=== PATIENT | male | born 1980 | race Caucasian/White ===

== ENCOUNTER 2018-06-11 00:03 | Outpatient (CLI) | payer BC, SELFPAY ==
[2018-06-11 10:59] LABS: HCT 45.6 % (40.0-50.0); HGB 15.7 g/dL (13.5-17.5); Mean Corp. HGB Concentration 34.4 g/dL (32.0-36.0); Mean Corpuscular Hemoglobin 31.8 pg (27.0-33.0); Mean Corpuscular Volume 92.3 fL (80-95); Mean Platelet Volume 10.5 fL (8.0-11.0); Platelet Count 217 x1000/uL (130-400); RBC 4.94 m/cumm (4.50-6.00); RBC Distribution Width 12.6 % (11.8-14.1); White Blood Cell Count 6.01 k/cumm (4.4-10.8)
[2018-06-11 11:31] LABS: ALT 38 U/L (12-78); AST 19 U/L (15-37); Albumin 3.9 g/dL (3.4-5.0); Alkaline Phosphatase 63 U/L (46-116); Anion Gap 9.4 mmol/L (3-11); BUN 17 mg/dL (7-18); Bilirubin, Total 0.6 mg/dL (0.2-1.0); CO2 26.6 mmol/L (21.0-32.0); CREATININE 0.95 mg/dL (0.70-1.30); Chloride 105 mmol/L (98-107); Cholesterol 170 mg/dL (50-200); Glucose 91 mg/dL (70-100); HDL Cholesterol 46 mg/dL (40-60); LDL CHOLESTEROL 106 mg/dL (<100); Potassium 4.3 mmol/L (3.5-5.1); Sodium 141 mmol/L (136-145); Total Protein 7.2 g/dL (6.4-8.2); Triglyceride 83 mg/dL (30-150)
== END 2018-06-11 00:23 ==
PROVIDERS: PCP Family Medicine; Visit Provider Family Medicine
DX: Z00.00 Encounter for general adult medical examination without abnormal findings (principal); Z13.228 Encounter for screening for other metabolic disorders; Z13.220 Encounter for screening for lipoid disorders; Z13.0 Encounter for screening for diseases of the blood and blood-forming organs and certain disorders involving the immune mechanism
CPT/HCPCS: 36415; 80053; 80061; 83721; 85027

== ENCOUNTER → 2023-04-16 13:27 | Outpatient (CLI) | payer BC, SELFPAY ==
--- NOTE | 2023-04-16 12:15 | DI.RAD_ITS ---
Exam(s) XR ARTHRITIS SERIES EXAM: XR ARTHRITIS SERIES CLINICAL HISTORY: increasing deformity,bilat hand pain, m79.642,m79.641. TECHNIQUE: 2D digital imaging was performed. Two views of both hands. COMPARISON: No exams were available for comparison FINDINGS: BONES: The bones are normally mineralized. No acute fracture is present. Chronic appearing deformit y of the tuft of the distal phalanx of the 4th finger of the left hand. No bony destructive lesion i s seen. JOINTS: No dislocation present. Minimal joint space narrowing and periarticular spurring at the inte rphalangeal joint of the left thumb. Chronic appearing adjacent densities. The there maintaining david ints of both hands and wrists are unremarkable. SOFT TISSUE: Normal. IMPRESSION: Minimal degenerative changes at the interphalangeal joints of both thumbs. DATA REPOSITORY: RADIATION DOSE DELIVERED:
== END ==
PROVIDERS: PCP Nurse Practitioner Family; Visit Provider Nurse Practitioner Family
DX: M20.092 Other deformity of left finger(s) (principal); M79.641 Pain in right hand
CPT/HCPCS: 73120

== ENCOUNTER 2023-04-28 03:00 | Outpatient (CLI) | payer BC, SELFPAY ==
[2023-04-28 07:24] LABS: HCT 43.5 % (40.0-50.0); HGB 15.4 g/dL (13.5-17.5); MCH 32.4 pg (27.0-33.0); MCHC 35.4 % (32.0-36.0); MCV 92 fL (80-95); MPV 9.1 fL (8.0-11.0); Platelet Count 208 10^3/uL (130-400); RBC 4.75 10^6/uL (4.36-5.78); RDW-SD 40.1 fL; WBC 6.18 10^3/uL (4.4-10.8)
[2023-04-28 09:07] LABS: ALT 39 U/L (16-63); AST 22 U/L (15-37); Albumin 3.7 g/dL (3.4-5.0); Alkaline Phosphatase 53 U/L (46-116); Anion Gap 7.7 mmol/L (3-11); BUN 17 mg/dL (7-18); Bilirubin, Total 0.5 mg/dL (0.2-1.0); CO2 27.3 mmol/L (21.0-32.0); Calcium 8.9 mg/dL (8.5-10.1); Calculated LDL 113 mg/dL (<100); Chloride 103 mmol/L (98-107); Cholesterol 199 mg/dL (<200); Estimated GFR 94.59 (mL/min/1.73m2); Glucose 116 mg/dL (74-106); HDL Cholesterol 53 mg/dL (40-60); Potassium 3.9 mmol/L (3.5-5.1); Sodium 138 mmol/L (136-145); Total Protein 7.2 g/dL (6.4-8.2); Triglyceride 167 mg/dL (<150); Vitamin B12 548 pg/mL (193-986)
[2023-04-28 18:58] LABS: Hepatitis C Ab w Rflx HCV PCR Negative (Negative)
[2023-04-28 18:59] LABS: HIV-1/2 Ag & Ab Screen Negative (Negative)
== END 2023-04-28 03:01 | disposition home or self-care (01) ==
LOC: LBO 03:00
PROVIDERS: PCP Nurse Practitioner Family; Visit Provider Nurse Practitioner Family
DX: Z13.220 Encounter for screening for lipoid disorders (principal); R20.2 Paresthesia of skin; Z11.4 Encounter for screening for human immunodeficiency virus [HIV]; Z11.59 Encounter for screening for other viral diseases
CPT/HCPCS: 36415; 80053; 80061; 85027; 86803; 87389; 82607

== ENCOUNTER 2023-05-19 10:23 | Day surgery (SDC) | payer BC, SELFPAY ==
[2023-05-19 10:33] VITALS: BP 151/95; PULSE 72; RESP 16; TEMP 36.1; O2SAT 97
[2023-05-19] MEDS: Lactated Ringers 1,000 ML 80 ML IV (10:40)
--- NOTE | 2023-05-19 10:50 | W.ANESPRE ---
General Info Date of Service Date Performed: 05/19/23 Height: 5 ft 6.5 in Weight: 112.9 kg Body Mass Index (BMI): 39.5 Surgical Procedure: Operation Date: 05/19/23 12:05 Proposed Procedure Side Surgeon pranay Gray MD Meds Allergies and Home Medications Allergies Allergy/AdvReac Type Severity Reaction Status Date / Time Sulfa (Sulfonamide Allergy Unknown Unverified 05/19/23 10:31 Antibiotics) Home Medication Medication Instructions Recorded vitamin B complex 1 cap PO DAILY 05/06/23 albuterol sulfate 90 mcg/actuation 2 inh inhalation Q6H PRN shortness 05/08/23 aerosol inhaler of breath or wheezing #18 grams inhalational spacing device #1 ea 05/08/23 (Aerochamber MV spacer) Current Visit Medications: Current Medications Generic Name Dose Route Start Last Admin Trade Name Freq PRN Reason Stop Dose Admin Ringer's Solution 1,000 mls @ 80 mls/hr 05/19/23 06:00 05/19/23 10:40 IV 06/17/23 23:59 80 mls/hr INFUSION KEENAN Administration IV Miscellaneous Supplies 1 each 05/19/23 06:00 Iv Access IV 06/17/23 23:59 DIRECTED KEENAN Sodium Chloride 0 ml 05/19/23 06:00 Normal Saline Flush 10 Ml Syr IV 06/17/23 23:59 PRN PRN Sodium Chloride 0 ml 05/19/23 06:00 Normal Saline 10 Ml Vial IJ 06/17/23 23:59 DIRECTED PRN Sterile Water 0 ml 05/19/23 06:00 Water,Injection,Sterile 10 Ml Vial IJ 06/17/23 23:59 DIRECTED PRN PFSH Active Problems Active Problems: Problem Status Onset Code Upper respiratory infection J06.9 Bilateral hand pain M79.641, M79.642 Paresthesias R20.2 Medical History Medical History Obesity Elevated blood pressure reading in office without diagnosis of hypertension Tobacco Smoking/Tobacco Use Status: Former Tobacco Use Passive smoking exposure: Yes Second hand exposure: Yes Alcohol Alcohol Intake: current Alcohol intake frequency: a few times a week Alcohol type: beer Substance Use Substance use: Daily Substance use type: marijuana Vital Signs and Lab Results Vital Signs Most Recent Vital Signs in EMR: Most Recent Vital Signs Temp Pulse Resp BP Pulse Ox 36.1 C L 72 16 151/95 H 97 05/19/23 10:33 05/19/23 10:33 05/19/23 10:33 05/19/23 10:33 05/19/23 10:33 Lab Results Blood Type / Crossmatch: No Data to Display Complete Blood Count: White Blood Count 6.18 10^3/uL (4.4-10.8) 04/28/23 07:10 Red Blood Count 4.75 10^6/uL (4.36-5.78) 04/28/23 07:10 Hemoglobin 15.4 g/dL (13.5-17.5) 04/28/23 07:10 Hematocrit 43.5 % (40.0-50.0) 04/28/23 07:10 Platelet Count 208 10^3/uL (130-400) 04/28/23 07:10 Complete Metabolic Panel: Sodium 138 mmol/L (136-145) 04/28/23 07:10 Potassium 3.9 mmol/L (3.5-5.1) 04/28/23 07:10 Chloride 103 mmol/L (98-107) 04/28/23 07:10 Carbon Dioxide 27.3 mmol/L (21.0-32.0) 04/28/23 07:10 BUN 17 mg/dL (7-18) 04/28/23 07:10 Creatinine 1.0 mg/dL (0.70-1.30) 04/28/23 07:10 Est GFR (CKD-EPI 2020) 94.59 (mL/min/1.73m2) 04/28/23 07:10 Calcium 8.9 mg/dL (8.5-10.1) 04/28/23 07:10 Albumin 3.7 g/dL (3.4-5.0) 04/28/23 07:10 Glucose 116 mg/dL (74-106) H 04/28/23 07:10 Liver Function Panel: Alanine Aminotransferase (ALT/SGPT) 39 U/L (16-63) 04/28/23 07:10 Aspartate Amino Transf (AST/SGOT) 22 U/L (15-37) 04/28/23 07:10 Coagulation Panel: No Data to Display Cardiac Panel: No Data to Display Arterial Blood Gas: No Data to Display Venous Blood Gas: No Data to Display Pancreas Panel: No Data to Display Thyroid Panel: No Data to Display Infectious Disease: HIV (1&2) Ag and Ab, 4th Generation Negative (Negative) 04/28/23 07:10 Hepatitis C Antibody Negative (Negative) 04/28/23 07:10 Blood Cultures: No Data to Display Toxicology Panel: No Data to Display Anesthesia Assessment and Plan Anesthesia History Personal History: No History of Anesthesia Complications Family History: No Family History of Anesthesia Complications Exercise Tolerance Exercise Tolerance: Metabolic Equivalents>4 Pertinent Negatives Pertinent Negatives: No Symptoms of GERD, No Major Cardiovascular Symptoms or Complaints, No Major Pulmonary Symptoms or Complaints and No History of CVA/TIA Cardiac & Pulmonary Exam Cardiac Exam: Normal S1/S2 Heart Sounds Pulmonary Exam: Clear Bilateral Breath Sounds Implantable Cardiac Device Does patient have a Pacemaker or an ICD?: No Airway Exam Known Difficult Airway: No Mallampati Class: 2 Mouth Opening: Normal (> 3cm) Thyromental Distance: Greater than 3 cm Neck Range of Motion: Full ROM Neck Circumference: Normal Teeth Condition: Normal Dentition ASA Classification ASA Score: ASA 2 Emergency Case?: No NPO Status NPO Status: NPO Clears >2 hours, Solids >8 hours Anesthesia Plan Resuscitation Status: Full Code Anesthesia Technique: General Anesthesia Airway Planned: Natural Airway Monitors Used: Standard Monitors
[2023-05-19 11:17] VITALS: BMI 39.5
--- NOTE | 2023-05-19 12:15 | W.COLOREPORT ---
Date of service: 05/19/23 Time of Service: 12:15 Colonoscopy Report Procedure Description: PROCEDURES PERFORMED: 1. Colonoscopy with cold forceps polypectomy PREOPERATIVE DIAGNOSIS: Screening colonoscopy POSTOPERATIVE DIAGNOSIS: Hyperplastic colorectal polyps SURGEON: Karen Gray MD INDICATION for procedure: The patient is a 43-year-old man who has never had a screening colonoscopy before. He has no symptoms. He has no family history of colon cancer. FINDINGS: The terminal ileum was normal. No diverticular disease noted. In the distal sigmoid and rectum are 4 or 5 flat, hyperplastic?appearing polyps. The largest 1 was removed with cold forceps technique to confirm benign histology. No hemorrhoid disease. SURVEILLANCE interval/FOLLOW-UP: 10 years SPECIMENS: yes EBL: Minimal COMPLICATIONS: None QUALITY of prep: Excellent Procedure in detail: The patient gave written consent and was in agreement with the indications, the potential risks as well as the benefits of the procedure. They taken to the endoscopy suite and laid in the left lateral decubitus position. A timeout was performed and anesthesia was administered which was tolerated well. I started the procedure. Digital rectal and visual examination was performed and grossly within normal limits. A well-lubricated flexible colonoscope was then introduced and passed without any notable difficulty all the way to the cecum identified by the ileocecal valve and the appendiceal orifice. The terminal ileum was briefly intubated and looked normal. The scope was then slowly withdrawn with the above-noted findings. The patient tolerated the procedure well and was taken to the PACU in hemodynamically stable condition.
--- NOTE | 2023-05-19 12:16 | W.PM.DSUDISC ---
Date of service: 05/19/23 Time of Service: 12:16 Discharge Plan Disposition Patient Disposition: Home Condition: Good Discharge Details Attending Provider: Satinder Gray Primary Care Provider: Jf Pedersen Home Meds and New Rx's Prescriptions: No Action vitamin B complex Capsule 1 cap PO DAILY albuterol sulfate 90 mcg/actuation HFA aerosol inhaler 2 inh inhalation Q6H PRN (Reason: shortness of breath or wheezing) Qty: 18 0RF (DME) Aerochamber MV Spacer See Rx Instructions .Route Qty: 1 0RF Rx Instructions: As directed Discharge Instructions Additional Instructions: FINDINGS: A small polyp was found and removed today. This is likely a completely benign polyp that has no cancer risk. It got removed and will get tested to confirm that. Because these types of polyps have no risk, you can repeat another colonoscopy in 10 years. Stand Alone Forms: Colonoscopy Post Instructions Activity:: Activity as Tolerated Diet:: As Tolerated
--- NOTE | 2023-05-19 12:33 | BOWEL_PTH ---
PATIENT: Ottoniel Craig LOC: [facility] U#:[id number] AGE/SX: 43/M ROOM: RE05/19/[address]: Satinder Gray : 1980 BED: DIS: 05/19/2023 SPEC #: [id number] RECD: 05/19/23 17:08 STATUS: EMORY CARTER #: [id number] MARLY: 05/19/23 12:[address]: Satinder Gray DEPT: Surgical Specimen RECD BY: Janice Marie ENTERED: 05/19/23 17:09 SP TYPE: Bowel OTHR DR: Jf Mora DNP Tissues: 1 - BIOPSY BOWEL Procedures: GROSS AND MICRO LEVEL 4 Comments: [id number]
[2023-05-19 12:36] VITALS: BP 124/80; PULSE 74; RESP 16; TEMP 36; O2SAT 96
--- NOTE | 2023-05-19 12:59 | W.ANESPOSTOP ---
Postoperative Evaluation Date, Time and Location Date Performed: 05/19/23 Time Performed: 12:38 Patient Location: Day Surgery Unit Vital Signs Most Recent Imported Vital Signs: Most Recent Vital Signs Temp Pulse Resp BP Pulse Ox 36 C L 74 16 124/80 96 05/19/23 12:36 05/19/23 12:36 05/19/23 12:36 05/19/23 12:36 05/19/23 12:36 Pain Score Most Recent Pain Score: Most Recent Pain Score Pain Level 0 05/19/23 12:36 Assessment Mental Status: Awake (Alert & Oriented to Patient Baseline) Airway and Respiratory Function: Patent airway with normal (patient baseline) respiratory exam Cardiovascular Function: Hemodynamically Stable Hydration Status: Adequately Hydrated Nausea & Vomiting: No Nausea or Vomiting Pain: Pt. Denies Any Pain Peripheral Nerve Block: Patient did not receive a nerve block
[2023-05-19 13:06] VITALS: BP 134/87; PULSE 65; RESP 16; TEMP 36; O2SAT 98
== END 2023-05-19 13:19 | disposition home or self-care (01) ==
PROVIDERS: PCP Nurse Practitioner Family; Visit Provider Student in an Organized Health Care Education/Training Program
PROC: 0DJD8ZZ Inspection of Lower Intestinal Tract, Via Natural or Artificial Opening Endoscopic (ICD-10-PCS; CPT 45378; principal; 2023-05-19 12:00)
DX: Z12.11 Encounter for screening for malignant neoplasm of colon (principal); K62.1 Rectal polyp; K63.5 Polyp of colon
CPT/HCPCS: 45380; 00123; 88305; J2704

== ENCOUNTER → 2023-07-17 10:57 | Outpatient (REF) | payer BC, SELFPAY ==
--- NOTE | 2023-07-17 11:00 | DI.RAD_ITS ---
Exam(s) XR CHEST 2V PA LATERAL EXAM: XR CHEST 2V PA LATERAL CLINICAL HISTORY: persistent upper respiratory infection J06.9 TECHNIQUE: 2D digital imaging was performed of the chest. Three images were obtained. PA and later al views were obtained. COMPARISON: No exams were available for comparison FINDINGS: MEDIASTINUM: Normal. HEART: Normal. PULMONARY VASCULATURE: Normal. LUNGS: Clear. PLEURAL SPACE: No pleural effusion or pneumothorax. BONE:Within normal limits for the patient's age. OTHER FINDINGS:Normal. IMPRESSION: No acute pulmonary findings. DATA REPOSITORY: RADIATION DOSE DELIVERED:
--- NOTE | 2023-07-17 11:33 | DI.VRAD_ITS ---
PROCEDURE INFORMATION: Exam: XR Chest Exam date and time: 07/17/2023 11:14 AM Age: 43 years old Clinical indication: Other: Persistent upper respiratory infection TECHNIQUE: Imaging protocol: Radiologic exam of the chest. Views: 2 views. COMPARISON: No relevant prior studies available. FINDINGS: Lungs: Unremarkable. No consolidation. Pleural spaces: Unremarkable. No pleural effusion. No pneumothorax. Heart/Mediastinum: Unremarkable. No cardiomegaly. Bones/joints: Unremarkable. IMPRESSION: No acute findings. Dictated and Authenticated by: Fernando Uribe MD. Ordering:TEREZA Rhoades MD
== END ==
LOC: DI 10:57
PROVIDERS: PCP Nurse Practitioner Family; Visit Provider Nurse Practitioner Family
DX: J06.9 Acute upper respiratory infection, unspecified (principal)
CPT/HCPCS: 71046

== ENCOUNTER 2023-10-09 13:53 | Outpatient (REF) | payer BC, SELFPAY ==
[2023-10-09 16:11] LABS: Anion Gap 8.2 mmol/L (3-11); BUN 18 mg/dL (7-18); CO2 26.8 mmol/L (21.0-32.0); Calcium 8.7 mg/dL (8.5-10.1); Chloride 104 mmol/L (98-107); Estimated GFR 94.59 (mL/min/1.73m2); Glucose 94 mg/dL (74-106); Potassium 4.2 mmol/L (3.5-5.1); Sodium 139 mmol/L (136-145)
== END 2023-10-09 13:54 | disposition home or self-care (01) ==
LOC: LBN 13:53
PROVIDERS: PCP Nurse Practitioner Family; Visit Provider Nurse Practitioner Family
DX: I10 Essential (primary) hypertension (principal)
CPT/HCPCS: 80048

== ENCOUNTER 2023-11-09 16:50 | Outpatient (REF) | payer BC, SELFPAY ==
[2023-11-09 21:53] LABS: Anion Gap 12.9 mmol/L (3-11); BUN 18 mg/dL (7-18); CO2 24.1 mmol/L (21.0-32.0); CREATININE 0.9 mg/dL (0.70-1.30); Calcium 9.8 mg/dL (8.5-10.1); Chloride 105 mmol/L (98-107); Estimated GFR 107.33 (mL/min/1.73m2); Glucose 94 mg/dL (74-106); Potassium 4.2 mmol/L (3.5-5.1); Sodium 142 mmol/L (136-145)
== END 2023-11-09 16:51 | disposition home or self-care (01) ==
LOC: LBN 16:50
PROVIDERS: PCP Nurse Practitioner Family; Visit Provider Nurse Practitioner Family
DX: I10 Essential (primary) hypertension (principal)
CPT/HCPCS: 80048

== ENCOUNTER 2024-08-07 03:44 | Outpatient (CLI) | payer OTHER, SELFPAY ==
[2024-08-07] MEDS: Methacholine 100 MG VIAL IH (16:49)
[2024-08-07] MEDS: Albuterol HFA 18 GM 200 PUFF INH IH (16:50)
[2024-08-07] MEDS: Inhaler, Assist Device 1 EACH MC (16:50)
--- NOTE | 2024-08-09 10:48 | W.PFT ---
Date of service: 08/07/24 Time of Service: 15:00 Pulmonary Function Test Result Indications: Wheeze Interpretation Spirometry: No airflow limitation. There was a 24% decrease in FEV1 with administration of 8.0mg/mL methacholine. Impression Borderline methacholine challenge. Clinical Correlation therefore is recommended.
== END 2024-08-07 03:45 | disposition home or self-care (01) ==
LOC: RT 03:44
PROVIDERS: PCP Nurse Practitioner Family; Visit Provider Student in an Organized Health Care Education/Training Program
DX: J45.909 Unspecified asthma, uncomplicated (principal)
CPT/HCPCS: 94060; 94070; 95070; J7674

== ENCOUNTER 2024-08-18 14:40 | Outpatient (CLI) | payer OTHER, SELFPAY ==
[2024-08-18 15:14] LABS: Anion Gap 8.3 mmol/L (3-11); BUN 28 mg/dL (7-18); CO2 26.7 mmol/L (21.0-32.0); CREATININE 1.3 mg/dL (0.70-1.30); Calcium 8.6 mg/dL (8.5-10.1); Chloride 105 mmol/L (98-107); Estimated GFR 68.61 (mL/min/1.73m2); Glucose 104 mg/dL (74-106); Potassium 3.8 mmol/L (3.5-5.1); Sodium 140 mmol/L (136-145)
== END 2024-08-18 14:41 | disposition home or self-care (01) ==
LOC: LBO 14:40
PROVIDERS: PCP Nurse Practitioner Family; Visit Provider Nurse Practitioner Family
DX: I10 Essential (primary) hypertension (principal)
CPT/HCPCS: 36415; 80048